=== PATIENT | female | born 1965 | race Native Hawaiian/Other Pacific Islander ===

== ENCOUNTER 2017-10-30 18:13 | Emergency (ER) | payer BC ==
[~2017-10-30] VITALS: Ht 165.1 cm; Wt 93.0 kg
[~2017-10-30 18:13] MED LIST: LEVO0.1224 PO
[2017-10-30 19:12] VITALS: BP 145/90; TEMP 97.9
== END 2017-10-30 19:12 | disposition home or self-care (01) ==
LOC: ED 18:13
PROC: 0HQLXZZ Repair Left Lower Leg Skin, External Approach (ICD-10-PCS; principal; 2017-10-30)
DX: S81.812A Laceration without foreign body, left lower leg, initial encounter (principal); W26.8XXA Contact with other sharp object(s), not elsewhere classified, initial encounter; Y93.89 Activity, other specified; Y92.89 Other specified places as the place of occurrence of the external cause
CPT/HCPCS: 99283

== ENCOUNTER 2017-11-09 18:20 | Emergency (ER) | payer BC ==
[~2017-11-09] VITALS: Ht 165.1 cm; Wt 102.1 kg
[2017-11-09 18:46] VITALS: BP 162/93; TEMP 98.6
== END 2017-11-09 18:54 | disposition home or self-care (01) ==
LOC: ED 18:20
DX: Z48.02 Encounter for removal of sutures (principal)
CPT/HCPCS: 99281